=== PATIENT | male | born 1985 | race African-American/Black ===

== ENCOUNTER 2020-08-31 00:03 | Emergency (ER) | payer BC, OTHER ==
[2020-08-31 00:57] VITALS: BP 131/67; PULSE 71; TEMP 97.6; BMI 25.7
[2020-08-31 01:20] LABS: BASO % 1.4 % (0-2.0); EOS % 3.4 % (0-4.5); HEMATOCRIT 41.2 % (35.4-49); HEMOGLOBIN 13.9 GM/dL (11.7-16.9); LYMPH % 54.6 % (8-40); MCH 28.9 pg (25.7-33.7); MCHC 33.7 g/dl (32.0-35.9); MEAN CELL VOLUME 85.6 fl (80-96); MEAN PLT VOLUME 8.7 fl (7.5-11.1); MONO % 12.8 % (3.8-10.2); NEUT % 27.8 % (42.8-82.8); PLATELET COUNT 193 K/MM3 (134-434); RBC 4.81 M/mm3 (4.00-5.60); RDW 14.2 % (11.9-15.9); WHITE BLOOD COUNT 4.3 K/mm3 (4.0-10.0)
[2020-08-31 01:30] LABS: INR 0.99 (0.83-1.09)
[2020-08-31 01:35] LABS: URINE APPEARANCE CLEAR; URINE BILIRUBIN NEGATIVE (NEGATIVE); URINE COLOR YELLOW; URINE GLUCOSE (UA) NEGATIVE (NEGATIVE); URINE KETONE TRACE (NEGATIVE); URINE LEUK ESTERASE NEGATIVE (NEGATIVE); URINE NITRITE NEGATIVE (NEGATIVE); URINE PROTEIN TRACE (NEGATIVE)
[2020-08-31 01:41] LABS: CALCIUM 9.2 mg/dL (8.5-10.1)
[2020-08-31 01:42] LABS: ALBUMIN 3.8 g/dl (3.4-5.0)
[2020-08-31 01:45] LABS: CREATININE 1.2 mg/dL (0.55-1.3)
[2020-08-31 01:46] LABS: BILIRUBIN,TOTAL 0.3 mg/dL (0.2-1); TOT PROT 7.6 g/dl (6.4-8.2)
== END 2020-08-31 03:41 | disposition home or self-care (01) ==
LOC: JER 00:03
DX: R10.31 Right lower quadrant pain (principal)
CPT/HCPCS: 36415; 74177-TC; 80053; 81003; 84484; 85025; 85610; 85730; 87086; 93005; 93010; 99284-25

== ENCOUNTER 2023-12-04 06:19 | Day surgery (SDC) | payer BC, OTHER ==
[2023-12-02 13:07] VITALS: BMI 26.3
[2023-12-04] MEDS ORDERED: ONDANSETRON 4 MG/2 ML VIAL IVPUSH PRN (08:24)
[2023-12-04] MEDS ORDERED: oxyCODONE HCL 5 MG TABLET PO PRN (08:24)
[2023-12-04] MEDS ORDERED: ACETAMINOPHEN INJECTION 100 ML IVPB ONE (08:32)
[2023-12-04] MEDS ORDERED: DEXAMETHASONE SOD PHOSPHATE 4 MG/1 ML VIAL ONE ×2 (08:37→10:09)
[2023-12-04] MEDS ORDERED: MIDAZOLAM HCL 2 MG/2 ML SINGLE DOSE VIAL ONE ×2 (08:37→10:12)
[2023-12-04] MEDS ORDERED: PROPOFOL 20 ML ONE ×2 (08:37→10:15)
[2023-12-04] MEDS ORDERED: ROCURONIUM BROMIDE 50 MG/5 ML SYRINGE ONE ×2 (08:37→10:12)
[2023-12-04] MEDS ORDERED: LIDOCAINE HCL/PF 2% SDV 5ML VIAL ONE ×2 (08:37→10:09)
[2023-12-04] MEDS ORDERED: ceFAZolin SODIUM 1 GM VIAL ONE ×2 (08:37→10:09)
[2023-12-04] MEDS ORDERED: GLYCOPYRROLATE 0.2 MG/1 ML VIAL ONE (10:09)
[2023-12-04] MEDS ORDERED: ONDANSETRON 4 MG/2 ML VIAL ONE (10:09)
[2023-12-04] MEDS ORDERED: SODIUM CHLORIDE 0.9% P/F 10 ML VIAL IJ ONE (10:09)
[2023-12-04] MEDS: ceFAZolin SODIUM 1 GM VIAL IVPB ONE (10:30)
[2023-12-04] MEDS ORDERED: HYDROmorphone HCl 2 MG/ML VIAL ONE (10:35)
[2023-12-04] MEDS ORDERED: SUGAMMADEX SODIUM 200 MG/2 ML VIAL ONE (11:02)
[2023-12-04] MEDS: LACTATED RINGERS SOLUTION 1,000 ML IV SCH (11:50)
[2023-12-04 13:09] VITALS: RESP 18
[2023-12-04 16:22] VITALS: BP 126/77; PULSE 61; TEMP 97.3
== END 2023-12-04 13:55 | disposition home or self-care (01) ==
LOC: JASU-SURG 06:19
PROVIDERS: ATTEND Otolaryngology
PROC: 0CTQ0ZZ Resection of Adenoids, Open Approach (ICD-10-PCS; 2023-12-04)
PROC: 0CTPXZZ Resection of Tonsils, External Approach (ICD-10-PCS; principal; 2023-12-04 10:00)
DX: G47.33 Obstructive sleep apnea (adult) (pediatric) (principal)
CPT/HCPCS: 94760; J0131